=== PATIENT | male | born 1960 | race Caucasian/White ===

== ENCOUNTER 2016-04-27 09:02 | Outpatient (CLI) | payer OTHER ==
--- NOTE | 2016-04-27 10:14 | DIAGNOSTIC IMAGING REPORT ---
PROCEDURE: XR CHEST 2 VIEW INDICATION: SOB TECHNIQUE: PA and lateral views. COMPARISON: None. FINDINGS: Lungs are clear. Heart and mediastinum are normal. Thorax is normal. IMPRESSION: 1. Negative chest.
== END 2016-04-27 23:00 ==
LOC: XR SRH 09:02
DX: R06.02 Shortness of breath (principal)

== ENCOUNTER 2016-05-18 09:19 | Outpatient (CLI) | payer OTHER ==
--- NOTE | 2016-05-18 10:51 | DIAGNOSTIC IMAGING REPORT ---
PROCEDURE: XR FINGER - LEFT INDICATION: CELLULITIS OF FINGER OF L HAND TECHNIQUE: Four views. COMPARISON: None. FINDINGS: Osseous structures and joint spaces are normal. No fractures or foreign bodies. IMPRESSION: 1. Normal second digit left hand.
== END 2016-05-18 23:00 ==
LOC: XR SRH 09:19
DX: L03.012 Cellulitis of left finger (principal)